=== PATIENT | female | born 1940 | race Caucasian/White ===

== ENCOUNTER 2024-03-10 19:06 | Emergency (ER) | payer OTHER, SELFPAY ==
[2024-03-10] VITALS (11 sets, daily range): BP systolic 141–185; BP diastolic 69–96
[2024-03-10 19:59] LABS: % Basophils 0.8 % (0-2); % Eosinophils 2.1 % (0-6); % Immature Granulocytes 0.2 % (0-0.5); % Lymphocytes 45.6 % (20.5-51.1); % Neutrophils 40.3 % (42.2-75.2); Absolute Basophils 0.1 10^3/uL (0-0.2); Absolute Eosinophils 0.2 10^3/uL (0-0.7); Absolute Lymphocytes 5.1 10^3/uL (1.2-3.4); Absolute Monocytes 1.2 10^3/uL (0.1-0.6); Absolute Neutrophils 4.5 10^3/uL (1.4-6.5); Hematocrit 36.4 % (37.0-47.0); Hemoglobin 12.9 g/dL (12.0-16.0); Mean Corp Hgb Conc. 35.4 g/dL (33.0-37.0); Mean Corpuscular Hgb 33.2 pg (27.0-31.0); Mean Corpuscular Volume 93.6 fL (81.0-99.0); Mean Platelet Volume 10.7 fL (7.4-10.4); Nucleated Red Blood Cells % 0 %; Platelet Count 219 10^3/uL (130-400); Red Blood Cell Count 3.89 10^6/uL (4.20-5.40); Red Cell Dist. Width 11.7 % (11.5-14.5); White Blood Cell Count 11.2 10^3/uL (4.8-10.8)
[2024-03-10 20:19] LABS: COVID-19 Antigen Negative (Negative)
[2024-03-10 20:23] LABS: ALT (SGPT) 18 U/L (0-35); AST (SGOT) 28 U/L (14-36); Albumin 3.9 g/dl (3.5-5.0); Alkaline Phosphatase 83 U/L (38-126); Blood Urea Nitrogen 18 mg/dl (7-17); Calcium 9.1 mg/dl (8.4-10.2); Carbon Dioxide 23 mmol/L (22-30); Chloride 101 mmol/L (98-107); Glucose 109 mg/dl (70-99); Potassium 3.4 mmol/L (3.5-5.1); Sodium 134 mmol/L (135-145); Total Bilirubin 0.7 mg/dl (0.2-1.3); Total Protein 6.4 g/dl (6.3-8.2); Troponin I < 0.012 ng/ml; eGFR > 60.00
--- NOTE | 2024-03-10 20:37 | ED.GENMED ---
History of Present Illness
General
Chief Complaint: Weakness
Source: patient and family
Exam Limitations: none
Time Seen by Provider: 03/10/24 19:42
Nursing documentation reviewed up to this point in time: agreed with
Travel History
Have you had any contact with someone who has COVID-19?: No
Do you have any symptoms of coronavirus? Fever > 100 degrees, chills, cough, shortness of breath, sore throat, loss of taste or smell, muscle aches, or headache?: No
History of Present Illness
History of Present Illness:
The patient is an 84-year-old female who reports that she had some wine with her , went to a restaurant, and felt suddenly extremely fatigued. Patient reports she felt as though she had no energy. In addition she felt nauseous although she
did not vomit. She denies fever. She denies shortness of breath. Patient reports she feels like she has nausea and acid reflux. She denies headache and vision changes. Family reports that she almost seem like she was in a pass out but did not.
Past History
Past History
ED Past Medical History: Arrthythmia and HTN
ED Past Surgical History: Orthopedic
Social History
Tobacco: Other
Alcohol: Occasional
Drug: None
Personal:
Living: with family
Employment: Other
Family History
Family History: Other
Review of Systems
Review of Systems
Allergies reviewed?: Yes
All Other Systems: ROS reviewed and negative except as documented in HPI and ROS
Constitutional: Reports fatigue
EENT: Reports no symptoms
Respiratory: Reports no symptoms
Cardiac: Reports other (Lightheaded but no syncope)
ABD/GI: Reports nausea
: Reports no symptoms
Musculoskeletal: Reports no symptoms
Neurological: Reports no symptoms; Denies dizzy or headache
Endocrine: Reports no symptoms
Hematologic/Lymphatic: Reports no symptoms
Psychiatric: Reports no symptoms
Phy Exam
Physical Exam
Physical Exam:
Physical Exam
General: no apparent distress, not acutely ill, conversational, nontoxic
Neck: supple. no meningeal signs. normal psoterior pharynx
Heart: s1/s2 regular rate and rhythm, no murmur. equal radial pulses.
Lungs: no acute respiratory distress. clear bilaterally
Abdomen: normal bowel sounds. not tender. no CVAT
Neuro: alert and oriented. no focal neurological deficits. 5 out of 5 strength in all extremities. No drift. Cranial nerves equal and symmetric bilaterally. Extraocular muscles intact. Normal [id number].
Skin: no rash
Psychiatric: well kept. interactive and cooperative
Extremities: no edema. no calf tenderness. negative homans. good distal pulses
Course
Orders/Labs/Results
Orders:
Orders
03/10/24 19:30
Electrocardiogram (*1) Urgent
Reason for Study: Other
Other Reason for Exam: weakness
03/10/24 19:32
EKG- Treatment ONCE
03/10/24 19:43
Urinalysis Reflex To Culture Urgent
03/10/24 19:50
COVID-19 Antigen Urgent
Source: Nasal Swab
Complete Blood Count/With Diff Urgent
Comprehensive Metabolic Panel Urgent
Troponin I Urgent
03/10/24 20:54
CR Chest - 2 Views Urgent
Comment:
Reason For Exam: cough
03/10/24 22:49
Troponin I Urgent
Ondansetron Injectable [Zofran] 4 mg IV NOW STA
Abnormal Lab Results
03/10/24
19:50
WBC 11.2 H 10^3/uL
(4.8-10.8)
RBC 3.89 L 10^6/uL
(4.20-5.40)
Hct 36.4 L %
(37.0-47.0)
MCH 33.2 H pg
(27.0-31.0)
MPV 10.7 H fL
(7.4-10.4)
Absolute Lymphs (auto) 5.1 H 10^3/uL
(1.2-3.4)
Absolute Monos (auto) 1.2 H 10^3/uL
(0.1-0.6)
Neutrophils % 40.3 L %
(42.2-75.2)
Monocytes % 11.0 H %
(1.7-9.3)
Sodium 134 L mmol/L
(135-145)
Potassium 3.4 L mmol/L
(3.5-5.1)
BUN 18 H mg/dl
(7-17)
Glucose 109 H mg/dl
(70-99)
03/10/24 19:50
03/10/24 19:50
Vital Signs
Initial and Last Documented VS:
Initial Vital Signs
BP
141/70
03/10/24 19:08
Last Documented Vital Signs
Temp Pulse Resp BP Pulse Ox
98.6 F 83 24 153/83 96
03/10/24 19:12 03/10/24 21:45 03/10/24 21:45 03/10/24 21:30 03/10/24 19:25
MDM/Problems Addressed
Differential Diagnosis Includes:
UTI, acute dehydration, orthostatic lightheadedness
MDM/Problems Addressed:
Patient presents with acute generalized weakness, lightheadedness, fatigue and nausea
Chronic conditions affecting care: HTN
Acute Exacerbation and/or Progression of Chronic Illness: HTN
*Radiology
Radiology exam reviewed: preliminary read by ED provider (Chest x-ray reviewed by me. No acute disease) and radiology read reviewed
*Pulse Oximetry
Patient hypoxic: no
*EKG
Interpreted by ED Provider?: Yes
Interpretation: normal
Comparison EKG: no comparison EKG present
Rate: normal
Rhythm: sinus
[place]: normal axis
Interval: normal interval
QRS Pattern: normal QRS
Ischemia: no ischemia
*Outside Barrel Lathe Operator Interpretation
Rate: normal
Interpretation: normal
Rhythm: sinus
*Critical Care Note
Total Time (30-74mins, 75-104mins- exclusive of procedures): Not Applicable
Data Reviewed
Source: patient
ED Attending Note
-
Portions of this chart may have been created with voice recognition software.� Occasional wrong word or��sound alike� substitutions may have occurred due to the inherent limitations of voice recognition software.
Discharge Plan
Departure
Prescriptions:
No Action
multivitamin Tablet
1 tab PO DAILY PRN (Reason: supplement)
losartan 25 mg tablet
12.5 mg PO QPM
Xarelto 20 mg tablet
20 mg PO QPM
Referrals:
Ginger Junior MD [Family Provider] -
Interventions
Interventions:
*Risk Screen - Suicide Last Done: 03/10/24 19:11
*General Assessment Last Done: 03/10/24 19:11
*Neglect/Abuse Screening Last Done: 03/10/24 19:11
ED- Fall Risk Assessment Last Done: 03/10/24 19:25
*ED COVID-19 Vaccine History Last Done: 03/10/24 19:25
ED- Cardiac Assessment Last Done: 03/10/24 19:25
ED- Neurological Assessment Last Done: 03/10/24 19:25
ED- Pulmonary Assessment Last Done: 03/10/24 19:25
Discharge Date and Time
Print Language: MICRONESIAN
--- NOTE | 2024-03-10 23:28 | ED.GENMED ---
History of Present Illness
<Jhon Robb MD - Last Filed: 03/11/24 01:13>
General
Chief Complaint: Weakness
Time Seen by Provider: 03/10/24 19:42
<Gris Cueto MD - Last Filed: 03/15/24 08:02>
Travel History
Have you had any contact with someone who has COVID-19?: No
Do you have any symptoms of coronavirus? Fever > 100 degrees, chills, cough, shortness of breath, sore throat, loss of taste or smell, muscle aches, or headache?: No
History of Present Illness
History of Present Illness:
see prior document from same visit
Past History
<Gris Cueto MD - Last Filed: 03/15/24 08:02>
Past History
ED Past Medical History: Arrthythmia and HTN
ED Past Surgical History: Orthopedic
Social History
Tobacco: Other
Alcohol: Occasional
Drug: None
Personal:
Living: with family
Employment: Other
Family History
Family History: Other
Phy Exam
<Gris Cueto MD - Last Filed: 03/15/24 08:02>
Physical Exam
Physical Exam:
...
Course
<Jhon Robb MD - Last Filed: 03/11/24 01:13>
Orders/Labs/Results
Orders:
Orders
03/10/24 19:30
Electrocardiogram (*1) Urgent
Reason for Study: Other
Other Reason for Exam: weakness
03/10/24 19:32
EKG- Treatment ONCE
03/10/24 19:50
COVID-19 Antigen Urgent
Source: Nasal Swab
Complete Blood Count/With Diff Urgent
Comprehensive Metabolic Panel Urgent
Troponin I Urgent
03/10/24 20:54
CR Chest - 2 Views Urgent
Comment:
Reason For Exam: cough
03/10/24 22:49
Ondansetron Injectable [Zofran] 4 mg IV NOW STA
03/10/24 23:41
Troponin I Urgent
Urinalysis Reflex To Culture Urgent
Date Specimen was Collected: 03/10/24
Time Specimen was Collected: 23:40
Urine Microscopic Reflex Cult Urgent
Urine Culture Urgent
SHAY Source: U
Specimen Description:
Date Specimen was Collected: 03/10/24
Time Specimen was Collected: 23:40
03/10/24 23:56
Ondansetron Injectable [Zofran] 4 mg .ROUTE .STK-MED ONE
03/11/24 01:09
Sulfamethox./Trimethoprim Ds [Bactrim Ds 800 mg/160 mg] 1 tablet PO NOW STA
03/11/24 01:10
Orthostatic VS- Treatment ONCE
03/11/24 01:17
Sulfamethox./Trimethoprim Ds [Bactrim Ds 800 mg/160 mg] 1 tablet .ROUTE .STK-MED ONE
Abnormal Lab Results
03/10/24 03/10/24
19:50 23:41
WBC 11.2 H 10^3/uL
(4.8-10.8)
RBC 3.89 L 10^6/uL
(4.20-5.40)
Hct 36.4 L %
(37.0-47.0)
MCH 33.2 H pg
(27.0-31.0)
MPV 10.7 H fL
(7.4-10.4)
Absolute Lymphs (auto) 5.1 H 10^3/uL
(1.2-3.4)
Absolute Monos (auto) 1.2 H 10^3/uL
(0.1-0.6)
Neutrophils % 40.3 L %
(42.2-75.2)
Monocytes % 11.0 H %
(1.7-9.3)
Sodium 134 L mmol/L
(135-145)
Potassium 3.4 L mmol/L
(3.5-5.1)
BUN 18 H mg/dl
(7-17)
Glucose 109 H mg/dl
(70-99)
Urine Ketones 1+ A
(Negative)
Ur Occult Blood Reflex 1+ A
(Negative)
Leukocyte Esterase Rfl 1+ A
(Negative)
Urine RBC 3-6 A /HPF
(0-2)
Urine Bacteria (Reflex) Moderate A
(Negative)
03/10/24 19:50
03/10/24 19:50
Vital Signs
Initial and Last Documented VS:
Initial Vital Signs
BP
141/70
03/10/24 19:08
Last Documented Vital Signs
Temp Pulse Resp BP Pulse Ox
98.6 F 79 13 171/93 96
03/10/24 19:12 03/11/24 01:15 03/11/24 01:15 03/11/24 01:00 03/10/24 19:25
<Gris Cueto MD - Last Filed: 03/15/24 08:02>
Orders/Labs/Results
Orders:
Orders
03/10/24 19:30
Electrocardiogram (*1) Urgent
Reason for Study: Other
Other Reason for Exam: weakness
03/10/24 19:32
EKG- Treatment ONCE
03/10/24 19:50
COVID-19 Antigen Urgent
Source: Nasal Swab
Complete Blood Count/With Diff Urgent
Comprehensive Metabolic Panel Urgent
Troponin I Urgent
03/10/24 20:54
CR Chest - 2 Views Urgent
Comment:
Reason For Exam: cough
03/10/24 22:49
Ondansetron Injectable [Zofran] 4 mg IV NOW STA
03/10/24 23:41
Troponin I Urgent
Urinalysis Reflex To Culture Urgent
Date Specimen was Collected: 03/10/24
Time Specimen was Collected: 23:40
Urine Microscopic Reflex Cult Urgent
Urine Culture Urgent
SHAY Source: U
Specimen Description:
Date Specimen was Collected: 03/10/24
Time Specimen was Collected: 23:40
03/10/24 23:56
Ondansetron Injectable [Zofran] 4 mg .ROUTE .STK-MED ONE
03/11/24 01:09
Sulfamethox./Trimethoprim Ds [Bactrim Ds 800 mg/160 mg] 1 tablet PO NOW STA
03/11/24 01:10
Orthostatic VS- Treatment ONCE
03/11/24 01:17
Sulfamethox./Trimethoprim Ds [Bactrim Ds 800 mg/160 mg] 1 tablet .ROUTE .STK-MED ONE
Abnormal Lab Results
03/10/24 03/10/24
19:50 23:41
WBC 11.2 H 10^3/uL
(4.8-10.8)
RBC 3.89 L 10^6/uL
(4.20-5.40)
Hct 36.4 L %
(37.0-47.0)
MCH 33.2 H pg
(27.0-31.0)
MPV 10.7 H fL
(7.4-10.4)
Absolute Lymphs (auto) 5.1 H 10^3/uL
(1.2-3.4)
Absolute Monos (auto) 1.2 H 10^3/uL
(0.1-0.6)
Neutrophils % 40.3 L %
(42.2-75.2)
Monocytes % 11.0 H %
(1.7-9.3)
Sodium 134 L mmol/L
(135-145)
Potassium 3.4 L mmol/L
(3.5-5.1)
BUN 18 H mg/dl
(7-17)
Glucose 109 H mg/dl
(70-99)
Urine Ketones 1+ A
(Negative)
Ur Occult Blood Reflex 1+ A
(Negative)
Leukocyte Esterase Rfl 1+ A
(Negative)
Urine RBC 3-6 A /HPF
(0-2)
Urine Bacteria (Reflex) Moderate A
(Negative)
03/10/24 19:50
03/10/24 19:50
Vital Signs
Initial and Last Documented VS:
Initial Vital Signs
BP
141/70
03/10/24 19:08
Last Documented Vital Signs
Temp Pulse Resp BP Pulse Ox
98.6 F 79 13 171/93 96
03/10/24 19:12 03/11/24 01:15 03/11/24 01:15 03/11/24 01:00 03/10/24 19:25
<Gris Cueto MD - Last Filed: 03/15/24 08:02>
*Critical Care Note
Total Time (30-74mins, 75-104mins- exclusive of procedures): Not Applicable
<Jhon Robb MD - Last Filed: 03/11/24 01:13>
Update Note
Update Note:
UA noted. Will treat with bactrim with recommendation for PCP f/u.
Urine cx pending
ED Attending Note
<Gris Cueto MD - Last Filed: 03/15/24 08:02>
-
Portions of this chart may have been created with voice recognition software.� Occasional wrong word or��sound alike� substitutions may have occurred due to the inherent limitations of voice recognition software.
Discharge Plan
Departure
Patient Disposition: Home (Routine Discharge)
Date of Disposition: 03/11/24
Time of Disposition: 01:10
Patient with high blood pressure during this ER visit?: Yes
Discharge Problem:
Weakness, Acute UTI
Instructions: Urinary Tract Infection, Adult (DC), Generalized Weakness (DC)
Prescriptions:
New
sulfamethoxazole-trimethoprim [Bactrim DS] 800-160 mg tablet
1 tab PO BID Qty: 13 0RF
No Action
multivitamin Tablet
1 tab PO DAILY PRN (Reason: supplement)
losartan 25 mg tablet
12.5 mg PO QPM
Xarelto 20 mg tablet
20 mg PO QPM
Referrals:
Ginger Junior MD [Family Provider] -
Activity Restrictions/Additional Instructions:
As discussed, please follow up with your primary care physician for re-evaluation. Your prescription has been sent electronically to [facility] in [place].
Interventions
Interventions:
*Risk Screen - Suicide Last Done: 03/10/24 19:11
*General Assessment Last Done: 03/10/24 19:11
*Neglect/Abuse Screening Last Done: 03/10/24 19:11
ED- Fall Risk Assessment Last Done: 03/10/24 19:25
*ED COVID-19 Vaccine History Last Done: 03/10/24 19:25
*Nursing Disposition Last Done: 03/11/24 01:48
ED- Cardiac Assessment Last Done: 03/10/24 19:25
ED- Neurological Assessment Last Done: 03/10/24 19:25
ED- Pulmonary Assessment Last Done: 03/10/24 19:25
Discharge Date and Time
Discharge Date/Time: 03/11/24 01:18
Print Language: YI
[2024-03-10 23:51] LABS: Urine Albumin Negative (Neg - Trace); Urine Bilirubin Negative (Negative); Urine Character Clear (Clear); Urine Color Yellow; Urine Glucose Negative (Negative); Urine Ketone 1+ (Negative); Urine Leukocyte 1+ (Negative); Urine Nitrite Negative (Negative); Urine Occult Blood 1+ (Negative); Urine Specific Gravity 1.015 (<1.030); Urine Urobilinogen Negative (Neg - 1+)
[2024-03-10] MEDS: ZOFRAN 4 MG IV (23:57)
[2024-03-11] VITALS: BP 161/112
[2024-03-11] LABS: Urine Mucus Few
[2024-03-11 00:01] LABS: Urine Bacteria Moderate (Negative)
[2024-03-11 00:14] LABS: Troponin I < 0.012 ng/ml
[2024-03-11 00:30] VITALS: BP 159/86
[2024-03-11 01:00] VITALS: BP 171/93
[2024-03-11] MEDS: BACTRIM DS 800 MG/160 MG 1 TABLET PO (01:22)
[2024-03-11 01:32] VITALS: BP 185/93; BP 194/92; BP 197/92; PULSE 76; PULSE 77; PULSE 79
== END 2024-03-11 01:18 | disposition home or self-care (01) ==
LOC: EMR 19:06
PROVIDERS: EMERGENCY PHYSICIAN Emergency Medicine; FAMILY PHYSICIAN Family Medicine
DX: R53.1 Weakness (principal); N39.0 Urinary tract infection, site not specified; I10 Essential (primary) hypertension
CPT/HCPCS: 99283; 96374; 71046; 80053; 81003; 81015; 84484; 85025; 87086; 87811; 93005